=== PATIENT | male | born 1955 | race Caucasian/White ===

== ENCOUNTER → 2017-02-13 | Outpatient (CLI) | payer MEDICARE, BC ==
[~2017-02-13] VITALS: Ht 182.9 cm; Wt 90.5 kg
[~2017-02-13] MED LIST: DITROPAN XL10 MG PO; EQUETRO300MG PO; FIBER GUMMIES2.5 GM PO; FLOMAX 0.40.4 MG/CAP PO; FOSAMAX 70MG TA70 MG PO; LIORESAL20 MG PO; PROSCAR 5MG5 MG PO; STOOL SOFTENER100 M2 PO; SYNTHROID0.05 MG/TA PO; TOPAMAX 25MG25 M1 PO; VITAMIN D32000 IU PO; ZANAFLEX CAPSULE4 MG PO; ZOCOR 40MG40 MG PO
[2017-02-13 07:24] VITALS: BP 126/75; PULSE 53
[2017-02-13 08:40] VITALS: BP 142/90; PULSE 60
== END ==
LOC: COL.RAD 06:54
DX: M51.26 Other intervertebral disc displacement, lumbar region (principal)
CPT/HCPCS: J3301

== ENCOUNTER 2018-10-20 15:15 | Outpatient (RCR) | payer MEDICARE, BC | END 2018-12-08 | disposition home or self-care (01) | LOC: WSC | DX: M62.472 Contracture of muscle, left ankle and foot (principal); M62.838 Other muscle spasm | CPT/HCPCS: G8978-GP; G8979-GP ==

== ENCOUNTER → 2018-11-17 | Outpatient (CLI) | payer MEDICARE, BC ==
[~2018-11-17] VITALS: Ht 182.9 cm; Wt 84.7 kg
[2018-11-17 13:46] VITALS: BP 126/80; PULSE 61
--- NOTE | 2018-11-17 14:35 | NUR ---
pt taken down in wheelchair to [facility] and assisted inside
[2018-11-17 14:36] VITALS: BP 150/83; PULSE 58
== END ==
LOC: COL.RAD 13:05
DX: M51.26 Other intervertebral disc displacement, lumbar region (principal)
CPT/HCPCS: J3301